=== PATIENT | male | born 1950 | race Caucasian/White ===

== ENCOUNTER 2021-05-10 18:44 | Emergency (ER) | payer MEDICARE, OTHER ==
--- NOTE | 2021-05-10 19:11 | EDM.PDOC ---
ED HPI GENERAL MEDICAL PROBLEM - General Chief Complaint: Chest Pain Stated Complaint: HERMAN AMB Time Seen by Provider: 05/10/21 18:52 Source of Information: Reports: Patient, Family (Grandson) History Limitations: Reports: No Limitations - History of Present Illness INITIAL COMMENTS - FREE TEXT/NARRATIVE: Mr. Cabrales is a very pleasant 71-year-old gentleman who is now brought to the ED by EMS after he became lightheaded for about 10 to 15 seconds after helping carry a platform about 50 feet, around 18:15 this evening. He states that after they set the platform down, he stood up and felt very lightheaded, nearly passing out. He emphasizes that he did not feel any chest pain or discomfort, palpitations, nausea, or sense of impending doom, however, he acknowledges that he felt diaphoretic with slight dyspnea. He states that he had put his hand on his chest, making others around him think that he was suffering chest pain, but he emphasizes that he did not. The patient states that he had a similar episode, although not as severe, about 2 to 3 weeks ago, while he was doing yard work. That episode lasted around 1 minute. Here in the ED, the patient is found to be hemodynamically stable, afebrile, saturating 98% on room air. He appears to be comfortable, in no acute distress. He states that he feels completely back to normal. Prior to this evening, the patient denies having a recent fever, chills, sore throat, ear pain, nasal or sinus congestion, cough, dyspnea, chest pain, palpitations, nausea, vomiting, constipation, diarrhea, abdominal pain, urinary symptoms, recent weight gain or weight loss, recent bloody bowel movements or black bowel movements, recent joint aches, headaches, or rashes. The patient's PCP is JERRY Simmons. He does not recall the name of his Orthopedic Surgeon. He has received 2 COVID vaccinations. - Related Data Allergies Allergy/AdvReac Type Severity Reaction Status Date / Time No Known Allergies Allergy Verified 05/10/21 18:47 Past Medical History Cardiovascular History: Reports: Hypertension Gastrointestinal History: Reports: Colon Polyp, GERD Genitourinary History: Reports: BPH Musculoskeletal History: Reports: Osteoarthritis Endocrine/Metabolic History: Reports: Obesity/BMI 30+, Other (See Below) (Prediabetes) - Past Surgical History HEENT Surgical History: Reports: Adenoidectomy, Tonsillectomy GI Surgical History: Reports: Appendectomy, Colonoscopy (x 2), Hernia, Abdominal (periumbilical) Male Surgical History: Reports: TURP-Transurethral Resection of Prostate Neurological Surgical History: Reports: C-Spine (ACDF) Musculoskeletal Surgical History: Reports: Knee Replacement (bilateral), Other (See Below) (left knee repair) Social & Family History - Tobacco Use Tobacco Use Status *Q: Never Tobacco User - Alcohol Use Alcohol Use History: No - Recreational Drug Use Recreational Drug Use: No - Living Situation & Occupation Living situation: Reports: , with Spouse Occupation: Retired ED ROS GENERAL - Review of Systems Review Of Systems: Comprehensive ROS is negative, except as noted in HPI. ED EXAM, GENERAL - Physical Exam Exam: See Below Exam Limited By: No Limitations General Appearance: Alert, WD/WN, No Apparent Distress Eye Exam: Bilateral Eye: EOMI, Normal Inspection Ears: Normal External Exam, Hearing Grossly Normal Nose: Normal Inspection Throat/Mouth: Normal Inspection, Normal Lips, Normal Voice, No Airway Compromise Head: Atraumatic, Normocephalic Neck: Normal Inspection, Full Range of Motion Respiratory/Chest: No Respiratory Distress, Lungs Clear, Normal Breath Sounds, No Accessory Muscle Use Cardiovascular: Normal Peripheral Pulses, Regular Rate, Rhythm, No Gallop, No JVD, No Murmur, No Rub Peripheral Pulses: 3+: Radial (L), Radial (R) GI/Abdominal: Normal Bowel Sounds, Soft, Non-Tender, No Organomegaly, No Distention, No Abnormal Bruit, No Mass Back Exam: Normal Inspection, Full Range of Motion, NT Extremities: Normal Inspection, Normal Range of Motion, Normal Capillary Refill Neurological: Alert, Oriented, Normal Cognition, No Motor/Sensory Deficits Psychiatric: Normal Affect Skin Exam: Warm, Dry, Intact, Normal Color, No Rash #1 Interpretation EKG Date: 05/10/21 Time: 18:37 Rhythm: NSR Rate (Beats/Min): 100 [place]: Normal P-Wave: Present QRS: Normal ST-T: Normal QT: Normal Comparison: NA - No Prior EKG Course - Vital Signs Last Recorded V/S: Last Vital Signs Temp 37.1 C 05/10/21 18:45 Pulse 96 05/10/21 18:45 Resp 18 05/10/21 18:45 BP 113/68 05/10/21 18:45 Pulse Ox 98 05/10/21 18:45 Orthostatic Blood Pressure [ 118/75 Standing] Orthostatic Blood Pressure [ 106/67 Supine] - Orders/Labs/Meds Orders: Active Orders 24 hr Category Date Time Status Orthostatic Vital Signs [RC] STAT Care 05/10/21 19:06 Active CXR [Chest 1V Frontal] [CR] Stat Exams 05/10/21 18:49 Taken Labs: Laboratory Tests 05/10/21 05/10/21 Range/Units 19:07 19:07 WBC 6.03 (4.23-9.07) K/mm3 RBC 4.36 L (4.63-6.08) M/mm3 Hgb 14.1 (13.7-17.5) gm/dl Hct 40.3 (40.1-51.0) % MCV 92.4 H (79.0-92.2) fl MCH 32.3 H (25.7-32.2) pg MCHC 35.0 (32.2-35.5) g/dl RDW Std Deviation 40.9 (35.1-43.9) fL Plt Count 171 (163-337) K/mm3 MPV 7.8 L (9.4-12.3) fl Neut % (Auto) 58.4 (34.0-67.9) % Lymph % (Auto) 30.0 (21.8-53.1) % [place] % (Auto) 7.3 (5.3-12.2) % Eos % (Auto) 3.5 (0.8-7.0) Baso % (Auto) 0.3 (0.1-1.2) % Neut # (Auto) 3.52 (1.78-5.38) K/mm3 Lymph # (Auto) 1.81 (1.32-3.57) K/mm3 [place] # (Auto) 0.44 (0.30-0.82) K/mm3 Eos # (Auto) 0.21 (0.04-0.54) K/mm3 Baso # (Auto) 0.02 (0.01-0.08) K/mm3 Sodium 138 (136-145) mEq/L Potassium 3.4 L (3.5-5.1) mEq/L Chloride 102 (98-107) mEq/L Carbon Dioxide 25 (21-32) mEq/L Anion Gap 14.4 (5-15) BUN 16 (7-18) mg/dL Creatinine 1.5 H (0.7-1.3) mg/dL Est Cr Clr Drug Dosing TNP Estimated GFR (MDRD) 46 (>60) mL/min BUN/Creatinine Ratio 10.7 L (14-18) Glucose 164 H (70-99) mg/dL Calcium 9.0 (8.5-10.1) mg/dL Total Bilirubin 0.6 (0.2-1.0) mg/dL AST 50 H (15-37) U/L ALT 60 (16-63) U/L Alkaline Phosphatase 65 (46-116) U/L Troponin I < 0.017 (0.00-0.056) ng/mL Total Protein 7.2 (6.4-8.2) g/dl Albumin 3.6 (3.4-5.0) g/dl Globulin 3.6 gm/dL Albumin/Globulin Ratio 1.0 (1-2) - Re-Assessments/Exams Free Text/Narrative Re-Assessment/Exam: 05/10/21 19:06 A CBC, CMP, troponin, portable chest x-ray, and ECG were ordered at triage. I have added orthostatics. 05/10/21 21:06 The patient is not orthostatic. Portable chest radiograph reviewed. There is likely mild cardiomegaly, but no pulmonary vascular congestion or pleural effusions seen on this AP view to suggest decompensated CHF. No focal infiltrate. No pneumothorax. Aortosclerosis noted. Formal read per the Radiologist pending. The patient's CBC is unremarkable. His CMP is remarkable for slight hypokalemia of 3.5, and a Cr slightly elevated at 1.5 with a BUN normal at 16, and hyperglycemia of 164. His AST is slightly elevated at 50, with an ALT normal at 60, and the remainder of his CMP being unremarkable. His troponin is undetectably low. 05/10/21 21:17 Test results discussed with the patient and his grandson. As above, today's work-up is grossly unremarkable. I suspect that his sudden lightheadedness is due to a Valsalva maneuver that he would have unconsciously been performing while helping to carry the platform. This would have decreased his blood pressure due to low cardiac return, will need to resolve itself shortly after he finished the physical activity. There is no suggestion that this was a cardiac event, however, I mentioned that we do see aortosclerosis on his chest x-ray, therefore he probably has some underlying coronary artery disease. In order to determine if he has significant coronary artery disease, the patient would have to undergo a cardiac stress test, which can be arranged by his PCP. Departure - Departure Time of Disposition: 21:19 Disposition: Home, Self-Care 01 Condition: Good Clinical Impression: Near syncope - Discharge Information *PRESCRIPTION DRUG MONITORING PROGRAM REVIEWED*: Not Applicable *COPY OF PRESCRIPTION DRUG MONITORING REPORT IN PATIENT JENNIFER: Not Applicable Referrals: Latisha River PA-C [Ordering Only Provider] - Forms: ED Department Discharge Additional Instructions: You were seen in the emergency room after nearly passing out after helping to carry a platform this evening. Work-up in the ER included positional blood pressure checks, numerous blood tests, a chest x-ray, and an ECG. Your entire work-up was unremarkable. You have not suffered a heart attack. You are not anemic. You are not dehydrated. Based on your history, physical exam, and ER tests, we suspect that your blood pressure likely dropped significantly when you were bearing down while helping to carry the platform, causing you to nearly pass out. Your blood pressure would have returned to normal shortly after you stopped the physical activity. There is no suggestion that this evening's event was cardiac related, however, if you want to determine if you have significant coronary artery disease, we recommend that you follow-up with your PCP, JERRY Simmons, to arrange for an outpatient cardiac stress test. If any other problems, please do not hesitate to return to the ER. Sepsis Event Note (ED) - Evaluation Sepsis Screening Result: No Definite Risk - Focused Exam Vital Signs: Vital Signs Temp Pulse Resp BP Pulse Ox 05/10/21 18:45 37.1 C 96 18 113/68 98 - My Orders Last 24 Hours: My Active Orders 05/10/21 18:49 CXR [Chest 1V Frontal] [CR] Stat 05/10/21 19:06 Orthostatic Vital Signs [RC] STAT - Assessment/Plan Last 24 Hours: My Active Orders 05/10/21 18:49 CXR [Chest 1V Frontal] [CR] Stat 05/10/21 19:06 Orthostatic Vital Signs [RC] STAT
--- NOTE | 2021-05-11 16:03 | CR ---
Chest: Portable view of the chest was obtained. Comparison: No prior chest imaging is available. Heart size and mediastinum are normal. Lungs are clear with no acute parenchymal change. Prior left shoulder surgery is noted. No definite acute osseous abnormality is appreciated. Impression: 1. Nothing acute is seen on portable chest x-ray. Diagnostic code #2
== END 2021-05-10 21:45 | disposition home or self-care (01) ==
LOC: JD.ED 18:44
DX: R55 Syncope and collapse (principal); I10 Essential (primary) hypertension; E66.9 Obesity, unspecified
CPT/HCPCS: 36415; 71045; 71045-26; 80053; 84484; 85025; 93005; 99285-25

== ENCOUNTER 2021-06-17 06:53 | Day surgery (SDC) | payer MEDICARE, OTHER ==
[2021-06-17] MEDS ORDERED: Lactated Ringers 1,000 ML IV SCH (07:00)
[2021-06-17] MEDS ORDERED: Lidocaine 1%/Sod Bicarbonate in NS 8.4% 1 ML Syringe IDERM PRN (07:00)
[2021-06-17] MEDS ORDERED: Sodium Chloride 0.9% 10 ML Syringe FLUSH PRN (07:00)
[2021-06-17] MEDS ORDERED: Propofol 200 MG/20 ML SDV ONE ×2 (07:22→08:17)
[2021-06-17] MEDS ORDERED: Midazolam 1 MG/ML 2 ML SDV ONE (07:22)
[2021-06-17] MEDS ORDERED: fentaNYL 100 MCG/2 ML SDV ONE (07:22)
[2021-06-17] MEDS ORDERED: Lidocaine 1% 4 ML ONE (07:22)
--- NOTE | 2021-06-17 07:38 | PCM.PREANE ---
Preanesthetic Assessment - Procedure Proposed Procedure: egd colonoscopy - Anesthesia/Transfusion/Family Hx Anesthesia History: Prior Anesthesia Without Reaction Family History of Anesthesia Reaction: No Transfusion History: No Prior Transfusion(s) - Review of Systems General: No Symptoms Pulmonary: No Symptoms Cardiovascular: No Symptoms Gastrointestinal: No Symptoms Neurological: No Symptoms Other: Reports: Diabetes (pre) - Physical Assessment NPO Status Date: 06/16/21 NPO Status Time: 20:30 Vital Signs: 130/70 82 95% 18 97.9 Height: 5 ft 10 in Weight: 128.7 kg ASA Class: 3 Mental Status: Alert & Oriented x3 Airway Class: Mallampati = 1 Dentition: Reports: Normal Dentition Thyro-Mental Finger Breadths: 3 Mouth Opening Finger Breadths: 3 ROM/Head Extension: Full Lungs: Clear to Auscultation, Normal Respiratory Effort Cardiovascular: Regular Rate, Regular Rhythm - Lab Values: Laboratory Last Values POC Glucose 117 mg/dL (70-99) H 06/17/21 07:13 - Allergies Allergies/Adverse Reactions: Allergies Allergy/AdvReac Type Severity Reaction Status Date / Time No Known Allergies Allergy Verified 06/16/21 14:04 - Blood Blood Available: No - Acknowledgements Anesthesia Type Planned: MAC Pt an Appropriate Candidate for the Planned Anesthesia: Yes Alternatives and Risks of Anesthesia Discussed w Pt/Guardian: Yes Pt/Guardian Understands and Agrees with Anesthesia Plan: Yes PreAnesthesia Questionnaire HEENT History: Reports: None Cardiovascular History: Reports: High Cholesterol, Hypertension Respiratory History: Reports: Sleep Apnea (cpap) Gastrointestinal History: Reports: Colon Polyp, GERD Genitourinary History: Reports: None, BPH ACCOUNT ADJUSTER History: Reports: None Musculoskeletal History: Reports: Osteoarthritis Neurological History: Reports: None Psychiatric History: Reports: None Endocrine/Metabolic History: Reports: Obesity/BMI 30+, Other (See Below) Hematologic History: Reports: None Immunologic History: Reports: None Oncologic (Cancer) History: Reports: None Dermatologic History: Reports: None - Infectious Disease History Infectious Disease History: Reports: None - Past Surgical History HEENT Surgical History: Reports: Adenoidectomy, LASIK, Tonsillectomy Cardiovascular Surgical History: Reports: None Respiratory Surgical History: Reports: None GI Surgical History: Reports: Appendectomy, Colonoscopy, Hernia, Abdominal Female Surgical History: Reports: None Male Surgical History: Reports: TURP-Transurethral Resection of Prostate Endocrine Surgical History: Reports: None Neurological Surgical History: Reports: None Musculoskeletal Surgical History: Reports: Carpal Tunnel, Knee Replacement, Other (See Below) Other Musculoskeletal Surgeries/Procedures:: left total knee, right partial knee, ulnar nerve surgery Oncologic Surgical History: Reports: None Dermatological Surgical History: Reports: Other (See Below) - SUBSTANCE USE Tobacco Use Status *Q: Never Tobacco User Tobacco Use Within Last Twelve Months: No Second Hand Smoke Exposure: No Days Per Week of Alcohol Use: 0 Recreational Drug Use History: No - HOME MEDS Home Medications: Home Meds Cetirizine [ZyrTEC] 10 mg PO DAILY 06/16/21 [History] Ketoconazole [Nizoral 2% Crm] 1 dose TOP ASDIRECTED 06/16/21 [History] Losartan/Hydrochlorothiazide [Hyzaar 100-12.5 Tablet] 1 tab PO DAILY 06/16/21 [History] Omeprazole Magnesium [Prilosec Otc] 20 mg PO DAILY 06/16/21 [History] Tamsulosin HCl [Flomax] 0.4 mg PO DAILY 06/16/21 [History] metFORMIN [Glucophage] 500 mg PO DAILY 06/16/21 [History] - CURRENT (IN HOUSE) MEDS Current Meds: Current Medications Lactated Ringer's (Ringers, Lactated) 1,000 mls @ 125 mls/hr IV ASDIRECTED GISSELL Stop: 06/17/21 23:00 Lidocaine/Sodium Bicarbonate (Lidocaine 1%/Sod Bicarbonate In Ns 8.4% 1 Ml Syringe) 0.25 ml IDERM ONETIME PRN PRN Reason: Prior to IV Start Stop: 06/17/21 18:00 Sodium Chloride (Sodium Chloride 0.9% 10 Ml Syringe) 10 ml FLUSH ASDIRECTED PRN PRN Reason: Keep Vein Open Stop: 06/17/21 18:00 Discontinued Medications Fentanyl (Fentanyl 100 Mcg/2 Ml Sdv) Confirm Administered Dose 100 mcg .ROUTE .STK-MED ONE Stop: 06/17/21 07:23 Lidocaine HCl (Xylocaine-Mpf 1%) Confirm Administered Dose 4 mls @ as directed .ROUTE .STK-MED ONE Stop: 06/17/21 07:23 Midazolam HCl (Midazolam 1 Mg/Ml 2 Ml Sdv) Confirm Administered Dose 2 mg .ROUTE .STK-MED ONE Stop: 06/17/21 07:23 Propofol (Propofol 200 Mg/20 Ml Sdv) Confirm Administered Dose 200 mg .ROUTE .[facility]-MED ONE Stop: 06/17/21 07:23
--- NOTE | 2021-06-17 09:30 | PCM.OPNOTE ---
- General Post-Op/Procedure Note Date of Surgery/Procedure: 06/17/21 Operative Procedure(s): EGD and colonoscopy Findings: 1. Irregular Z-line with Steel's changes 2. Bile reflux 3. Gastritis 4. Duodenitis 5. Colon polyps 6. Melanosis coli 7. Diverticulosis Pre Op Diagnosis: Reflux, screening for colon cancer Post-Op Diagnosis: same Anesthesia Technique: MAC Primary Surgeon: Sandi Hobbs Anesthesia Provider: Sheryl Robbins Pathology: 1. GE junction biopsies 2. Gastric antrum biopsies 3. Duodenal biopsies 4. Hepatic flexure polyps x2 5. Transverse colon polyp 6. Sigmoid colon polyp x2 7. Rectal polyp Fluid Replacement, Intraop: 800 Complications: none apparent Condition: Good
--- NOTE | 2021-06-17 09:30 | PCM.PRNOTE ---
- Free Text/Narrative Note: Operative Report Date of Procedure: June 17, 2021 Pre Op Diagnosis: Reflux, screening for colon cancer Post-Op Diagnosis: Same Operative Procedures: 1. EGD with biopsy 2. Colonoscopy to the cecum with polypectomy Primary Surgeon: Sandi Hobbs MD Anesthesia Provider: Sheryl Robbins CRNA Anesthesia Technique: MAC IV Fluid Replacement, Intraop: 800cc crystalloid Output, Urine Amount: 0cc EBL in mLs: 0cc Findings: 1. Irregular Z-line with Steel's changes 2. Bile reflux 3. Gastritis 4. Duodenitis 5. Colon polyps 6. Melanosis coli 7. Diverticulosis Specimens: 1. GE junction biopsies 2. Gastric antrum biopsies 3. Duodenal biopsies 4. Hepatic flexure polyps x2 5. Transverse colon polyp 6. Sigmoid colon polyp x2 7. Rectal polyp Drain/Tubes: None Indication: The patient is a 71-year-old gentleman who presented to the clinic with need for colorectal cancer screening. The patient reported symptoms of longstanding acid reflux. The patient was consented for an EGD and colonoscopy. Risks of bleeding, and perforation were discussed, and the patient agreed to the risks and wished to proceed. Description of the procedure: The patient was taken back to the endoscopy suite, and placed in the left lateral decubitus position. A bite block was placed. The patient was sedated with MAC anesthesia. The Olympus video endoscope was inserted into the oropharynx and guided under direct vision into the esophagus, stomach, and duodenum. The duodenal bulb and second portion of the duodenum were remarkable for patchy erythema and friability. The duodenal mucosa was biopsied with a cold biopsy forceps in the second portion of the duodenum and first portion. The gastric antrum was inspected and cold biopsy forceps were used to take tissue samples for H. pylori. The gastric mucosa had a patchy red appearance throughout consistent with gastritis. The scope was withdrawn to the stomach and retroflexed. There was bilious fluid pooling in the stomach which was consistent with findings of bile reflux. No erosions or ulcers were noted. The scope was withdrawn to the esophagus. A this point we noted Barretts esophagus changes, marked by an irregular Z-line and 3 tongues of salmon-colored mucosa extending into the distal esophagus. This area was biopsied in 4 quadrants using a cold biopsy forceps. The endoscope was then withdrawn. Next, anorectal examination was performed. No lesions, masses or hemorrhoids were noted externally or on palpation. The scope was placed into the rectum and advanced to cecum. Upon reaching the cecum, and the patients cecum was entered. There was some tortuosity of the colon with looping of the colonoscope which required upon application of manual pressure. The ileocecal valve was well visualized and the appendiceal orifice identified. At this point, the scope was slowly withdrawn, paying attention to the mucosa. The patient had a good bowel prep. 2 polyps were noted in the hepatic flexure measuring 2 to 4 mm in semisessile. These were removed with a jumbo cold biopsy forceps. In the transverse colon there was a 3 mm sessile polyp which was also removed with a jumbo cold biopsy forceps. In the sigmoid colon there were 2 additional sessile polyps measuring approximately 4 mm which were also removed with a jumbo cold biopsy forceps. In the rectum a flat 2 mm polyp was seen and removed with a jumbo cold biopsy forceps. There were additional findings of diverticulosis noted in the sigmoid and descending colon. There were no signs of inflammation or infection associated. There was also moderate melanosis coli in the left colon. In the rectum, scope was retroflexed and some hemorrhoidal tissue was noted. The scope was placed back in the lumen and excess air was aspirated. The scope was removed. The patient tolerated the procedure very well. Complications: None apparent Condition: The patient was transported to PACU in stable condition. Sandi Hobbs MD General Surgery
== END 2021-06-17 10:30 | disposition home or self-care (01) ==
LOC: JD.SDS 06:53
PROVIDERS: ATTEND Surgery
DX: Z12.11 Encounter for screening for malignant neoplasm of colon (principal); D12.3 Benign neoplasm of transverse colon; D12.5 Benign neoplasm of sigmoid colon; K31.89 Other diseases of stomach and duodenum; K57.30 Diverticulosis of large intestine without perforation or abscess without bleeding; I78.1 Nevus, non-neoplastic; K21.9 Gastro-esophageal reflux disease without esophagitis; K22.89 Other specified disease of esophagus; K22.70 Barrett's esophagus without dysplasia; K29.90 Gastroduodenitis, unspecified, without bleeding; K63.89 Other specified diseases of intestine; K64.9 Unspecified hemorrhoids; G47.33 Obstructive sleep apnea (adult) (pediatric); I10 Essential (primary) hypertension; Z98.890 Other specified postprocedural states; Z79.899 Other long term (current) drug therapy; E66.9 Obesity, unspecified; Z68.41 Body mass index [BMI] 40.0-44.9, adult
CPT/HCPCS: 43239; 45380; 82947; 88305; J2250; J2704; J3010; J7120; 00813; 99100

== ENCOUNTER 2022-02-25 11:09 | Day surgery (SDC) | payer MEDICARE, OTHER ==
[2022-02-25] MEDS: Polymyxin B/Trimethoprim 10 ML Bottle EYERT SCH ×4 (11:49→13:36)
[2022-02-25] MEDS: Brimonidine 0.2% Ophth Soln 5 ML Bottle EYERT SCH ×4 (11:53→13:36)
[2022-02-25] MEDS: Phenylephrine 2.5% Ophth Soln 2 ML Bot EYERT SCH ×6 (12:00→13:17)
[2022-02-25] MEDS: Tropicamide 1% Ophth Soln 15 ML Bottle EYERT SCH ×4 (12:06→12:48)
[2022-02-25] MEDS: Tetracaine HCl/PF 0.5% 4 ML Bottle EYEBOTH SCH ×5 (13:04→13:25)
[2022-02-25] MEDS: Lidocaine 1% PF 2 ML SDV INJECT SCH ×2 (13:05→13:25)
[2022-02-25] MEDS: Cefuroxime 10 MG/ML SYRINGE EYERT SCH ×2 (13:06→13:34)
[2022-02-25] MEDS: Pilocarpine 4% Ophth Soln 15 ML Bot EYERT SCH ×2 (13:07→13:36)
== END 2022-02-25 13:44 | disposition home or self-care (01) ==
LOC: JD.SDS 11:09
PROVIDERS: ATTEND Ophthalmology
DX: E11.36 Type 2 diabetes mellitus with diabetic cataract (principal); H25.813 Combined forms of age-related cataract, bilateral; H21.81 Floppy iris syndrome; I10 Essential (primary) hypertension; E66.9 Obesity, unspecified; Z90.49 Acquired absence of other specified parts of digestive tract; Z98.890 Other specified postprocedural states; Z68.41 Body mass index [BMI] 40.0-44.9, adult
CPT/HCPCS: 66984; J0697; V2632

== ENCOUNTER 2022-03-25 08:19 | Day surgery (SDC) | payer MEDICARE, OTHER ==
[~2022-03-25 08:19] MED LIST: Cefuroxime 10 MG/ML SYRINGE EYELF SCH; Lidocaine 1% PF 2 ML SDV INJECT SCH; Pilocarpine 4% Ophth Soln 15 ML Bot EYELF SCH
[2022-03-25] MEDS: Polymyxin B/Trimethoprim 10 ML Bottle EYELF SCH ×3 (08:23→10:09)
[2022-03-25] MEDS: Brimonidine 0.2% Ophth Soln 5 ML Bottle EYELF SCH ×3 (08:31→10:09)
[2022-03-25] MEDS: Phenylephrine 2.5% Ophth Soln 2 ML Bot EYELF SCH ×5 (08:35→09:41)
[2022-03-25] MEDS: Tropicamide 1% Ophth Soln 15 ML Bottle EYELF SCH ×4 (08:40→09:15)
[2022-03-25] MEDS: Tetracaine HCl/PF 0.5% 4 ML Bottle EYEBOTH SCH ×4 (09:27→09:53)
== END 2022-03-25 10:17 | disposition home or self-care (01) ==
LOC: JD.SDS 08:19
PROVIDERS: ATTEND Ophthalmology
DX: E11.36 Type 2 diabetes mellitus with diabetic cataract (principal); H25.812 Combined forms of age-related cataract, left eye; H16.223 Keratoconjunctivitis sicca, not specified as Sjogren's, bilateral; H02.831 Dermatochalasis of right upper eyelid; H02.834 Dermatochalasis of left upper eyelid; H17.813 Minor opacity of cornea, bilateral; H21.81 Floppy iris syndrome; H21.42 Pupillary membranes, left eye; K21.9 Gastro-esophageal reflux disease without esophagitis; E66.9 Obesity, unspecified; I10 Essential (primary) hypertension; Z98.890 Other specified postprocedural states; Z90.49 Acquired absence of other specified parts of digestive tract; Z79.899 Other long term (current) drug therapy; Z79.84 Long term (current) use of oral hypoglycemic drugs; Z96.1 Presence of intraocular lens; Z68.41 Body mass index [BMI] 40.0-44.9, adult
CPT/HCPCS: 66982; J0697; V2632